=== PATIENT | female | born 1935 | race Caucasian/White ===

== ENCOUNTER 2017-08-06 20:02 | Emergency (ER) | payer MEDICARE ==
[2017-08-06 20:10] VITALS: BP 153/75; PULSE 64; RESP 20; TEMP 97.7; O2SAT 96
[2017-08-06 20:15] VITALS: BP 111/54; PULSE 61; RESP 20; O2SAT 97
[2017-08-06] MEDS ORDERED: MEMA14CA PO (20:24)
[2017-08-06] MEDS ORDERED: TRAM50TA PO (20:24)
[2017-08-06] MEDS ORDERED: SODIUM CHLORIDE 0.9% FLUSH 10 ML FLUSH IVF PRN (20:45)
[2017-08-06 20:52] LABS: AUTOMATED NEUTROPHIL # 2.8 TH/MM3 (1.8-7.7); BASOPHIL % 0.6 % (0.0-2.0); EOSINOPHIL # 0.1 TH/MM3 (0-0.4); EOSINOPHIL % 1.7 % (0.0-4.0); HEMATOCRIT 43.6 % (35.0-46.0); LYMPH % 43.1 % (9.0-44.0); LYMPHOCYTE # 2.5 TH/MM3 (1.0-4.8); MEAN CELL VOLUME 95.8 FL (80.0-100.0); MEAN CORPUSCULAR HEMOGLOBIN 30.8 PG (27.0-34.0); MEAN CORPUSCULAR HGB CONC 32.1 % (32.0-36.0); MEAN PLATELET VOLUME 8.7 FL (7.0-11.0); MONO % 7.4 % (0.0-8.0); MONOCYTE # 0.4 TH/MM3 (0-0.9); NEUT % 47.2 % (16.0-70.0); PLATELET COUNT 252 TH/MM3 (150-450); RED BLOOD COUNT 4.55 MIL/MM3 (4.00-5.30); RED CELL DISTRIBUTION WIDTH 12.6 % (11.6-17.2); WHITE BLOOD COUNT 5.8 TH/MM3 (4.0-11.0)
--- NOTE | 2017-08-06 20:58 | PD ---
HPI Chief Complaint: General Weakness Time Seen by Provider: 20:29 Travel History International Travel<30 days: No Contact w/Intl Traveler<30days: No Traveled to known affect area: No History of Present Illness HPI 82-year-old female presents emergency department after a near syncopal event at home. She was eating dinner with her son when she became [place]anez and ashen and below her to the ground but didn't ever actually pass out according to her son. Patient does have history of chronic pain is been taking opiates and Flexeril together. She states takes these rarely. She denies any chest pain shortness of breath abdominal pain headache neck injury back injury. States currently she feels fine. No history of heart or lung disease. 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 Son reports no true loss of consciousness no seizure activity no focalized weakness. Symptoms are resolved, context as above, onset just prior to arrival, associated signs symptoms as above. PFSH Past Medical History Diminished Hearing: No Musculoskeletal: Yes (LOW BACK PAIN) Neurologic: Yes (SHORT TERM MEMORY) Tetanus Vaccination: Unknown Influenza Vaccination: Yes : 6 Para: 6 Past Surgical History Hysterectomy: Yes Social History Alcohol Use: Yes (SOMETIMES WINE WITH DINNER) Tobacco Use: No Substance Use: No Allergies-Medications (Allergen,Severity, Reaction): Coded Allergies: No Known Allergies (Unverified , 08/06/17) Reported Meds & Prescriptions Reported Meds & Active Scripts Active Reported Namenda Xr (Memantine) 14 Mg Caper 14 Mg PO DAILY Tramadol (Tramadol HCl) 50 Mg Tab 50 Mg PO Q6H PRN Review of Systems Except as stated in HPI: all other systems reviewed are Neg Physical Exam Narrative GENERAL: Well-developed well-nourished appears generally than stated age in no obvious distress SKIN: Focused skin assessment warm/dry. HEAD: Atraumatic. Normocephalic. EYES: Pupils equal and round. No scleral icterus. No injection or drainage. ENT: No nasal bleeding or discharge. Mucous membranes pink and moist. NECK: Trachea midline. No JVD. CARDIOVASCULAR: Regular rate and rhythm. No murmur appreciated. 2+ bilateral equal pulses in all 4 extremities. RESPIRATORY: No accessory muscle use. Clear to auscultation. Breath sounds equal bilaterally. GASTROINTESTINAL: Abdomen soft, non-tender, nondistended. Hepatic and splenic margins not palpable. MUSCULOSKELETAL: No obvious deformities. No clubbing. No cyanosis. No edema. NEUROLOGICAL: Awake and alert. Cranial nerves II through XII are grossly intact and nonfocal, 5 out of 5 strength in all 4 extremities, cerebellar testing negative, and relates with an even narrow based and balanced gait. PSYCHIATRIC: Appropriate mood and affect; insight and judgment normal. Data Data Last Documented VS Orders Orders Complete Blood Count With Diff (08/06/17 20:36) Comprehensive Metabolic Panel (08/06/17 20:36) Troponin I (08/06/17 20:36) Ecg Monitoring (08/06/17 20:36) Iv Access Insert/Monitor (08/06/17 20:36) Oximetry (08/06/17 20:36) Sodium Chloride 0.9% Flush (Ns Flush) (08/06/17 20:45) Ed Discharge Order (08/06/17 21:54) Electrocardiogram (08/06/17 20:11) Labs Laboratory Tests Test 08/06/17 20:15 White Blood Count 5.8 TH/MM3 Red Blood Count 4.55 MIL/MM3 Hemoglobin 14.0 GM/DL Hematocrit 43.6 % Mean Corpuscular Volume 95.8 FL Mean Corpuscular Hemoglobin 30.8 PG Mean Corpuscular Hemoglobin Concent 32.1 % Red Cell Distribution Width 12.6 % Platelet Count 252 TH/MM3 Mean Platelet Volume 8.7 FL Neutrophils (%) (Auto) 47.2 % Lymphocytes (%) (Auto) 43.1 % Monocytes (%) (Auto) 7.4 % Eosinophils (%) (Auto) 1.7 % Basophils (%) (Auto) 0.6 % Neutrophils # (Auto) 2.8 TH/MM3 Lymphocytes # (Auto) 2.5 TH/MM3 Monocytes # (Auto) 0.4 TH/MM3 Eosinophils # (Auto) 0.1 TH/MM3 Basophils # (Auto) 0.0 TH/MM3 CBC Comment DIFF FINAL Differential Comment Blood Urea Nitrogen 22 MG/DL Creatinine 1.10 MG/DL Random Glucose 126 MG/DL Total Protein 7.2 GM/DL Albumin 3.5 GM/DL Calcium Level 8.3 MG/DL Alkaline Phosphatase 62 U/L Aspartate Amino Transf (AST/SGOT) 13 U/L Alanine Aminotransferase (ALT/SGPT) 20 U/L Total Bilirubin 0.4 MG/DL Sodium Level 138 MEQ/L Potassium Level 3.6 MEQ/L Chloride Level 103 MEQ/L Carbon Dioxide Level 24.3 MEQ/L Anion Gap 11 MEQ/L Estimat Glomerular Filtration Rate 47 ML/MIN Troponin I LESS THAN 0.02 NG/ML MDM Medical Decision Making Medical Screen Exam Complete: Yes Emergency Medical Condition: Yes Differential Diagnosis Medication induced syncope, cardiogenic syncope, neurogenic syncope, TIA, anemia , congestive heart failure, vasovagal syncope. Narrative Course Patient roomed in emergency department, at this time has a reassuring physical exam, basic labs EKG stents, no indication for imaging of head or neck. Initial workup negative in the emergency department. At this time the patient was counseled on her age and possibility for cardiogenic syncope as well as neurogenic syncope including TIA, suggested admission for observation status for further workup and she declined. She states she would rather follow up with her primary care physician. States she is visiting from out of town, I stated there is some risk of major adverse cardiac event and certainly would be very difficult for me to quantify that risk at this time but she needs to have close follow-up with her primary care physician. After discussions of risks benefits complications and alternatives of leaving to follow-up in outpatient including permanent disability the patient's to light follow-up as an outpatient. Given that she understands the risks no indication to keep her against her will. She is stable for discharge Diagnosis Primary Impression: Near syncope Additional Instructions: Follow up with a primary care physician within one week for a check up and further workup of near syncope. If you experience any chest pain/SOB headaches weakness in an arm or leg return to the ER immediately. Use tramadol sparingly. You can always try tylenol or ibuprofen over the counter prior to taking the tramadol. Disposition: 01 DISCHARGE HOME Condition: Stable Etienne Bach MD Aug 06, 2017 20:58
[2017-08-06 21:01] LABS: CHLORIDE 103 MEQ/L (98-107); SODIUM (NA) 138 MEQ/L (136-145)
[2017-08-06 21:04] LABS: ALBUMIN 3.5 GM/DL (3.4-5.0); BICARBONATE 24.3 MEQ/L (21.0-32.0); BLOOD UREA NITROGEN 22 MG/DL (7-18); CALCIUM 8.3 MG/DL (8.5-10.1); GLUCOSE,RANDOM 126 MG/DL (74-106)
[2017-08-06 21:07] LABS: ALT (GPT) 20 U/L (10-53); AST (GOT) 13 U/L (15-37); GLOMERULAR FILTRATION RATE 47 ML/MIN (>89)
[2017-08-06 21:09] LABS: TOTAL BILIRUBIN ADULT 0.4 MG/DL (0.2-1.0); TOTAL PROTEIN 7.2 GM/DL (6.4-8.2)
[2017-08-06 21:10] LABS: ALKALINE PHOSPHATASE 62 U/L (45-117)
[2017-08-06 21:12] LABS: TROPONIN I LESS THAN 0.02 NG/ML (0.02-0.05)
[2017-08-06 22:34] VITALS: BP 133/65; TEMP 97.5
--- NOTE | 2017-08-07 22:38 | EKG ---
Date Performed: 08/06/2017 Time Performed: 20:11:43 PTAGE: 82 years EKG: Sinus rhythm NORMAL ECG NO PREVIOUS TRACING DOCTOR: Chapin Araujo Interpretating Date/Time 08/07/2017 22:37:18
== END 2017-08-06 22:47 | disposition home or self-care (01) ==
LOC: PHED 20:02
DX: R55 Syncope and collapse (principal); Z79.899 Other long term (current) drug therapy
CPT/HCPCS: 80053; 84484; 85025; 93005